=== PATIENT | male | born 1965 | race Caucasian/White ===

== ENCOUNTER 2018-06-07 11:07 | Emergency (ER) | payer SELFPAY ==
[~2018-06-07] VITALS: Ht 180.3 cm; Wt 81.8 kg
[2018-06-07 11:59] LABS: HEMATOCRIT 43.2 % (42.0-52.0); HEMOGLOBIN 15.7 g/dL (13.5-18.0); MEAN CELL VOLUME 94 fl (78-100); MEAN CORPUSCULAR HEMOGLOBIN 34 pg (27-31); MEAN CORPUSCULAR HGB CONC 36 g/dL (33-37); MEAN PLATELET VOLUME 11.5 fl (7.4-10.4); PLATELET COUNT 170 K/mm3 (130-400); RED BLOOD COUNT 4.58 M/mm3 (4.20-5.60); RED CELL DISTRIBUTION WIDTH 12.6 % (11.5-14.5); WHITE BLOOD COUNT 11.3 K/mm3 (4.8-10.8)
[2018-06-07 12:15] LABS: ALBUMIN 4.8 g/dL (3.5-5.0); ALT/SGPT 175 U/L (21-72); AST-SGOT 496 U/L (17-59); CALCIUM 10.2 mg/dL (8.4-10.2); CARBON DIOXIDE 24 mmol/L (22-30); GLUCOSE 176 mg/dL (75-110); POTASSIUM 3.9 mmol/L (3.6-5.0); SODIUM 132 mmol/L (137-145); TOTAL BILIRUBIN 5.8 mg/dL (0.2-1.3); TOTAL PROTEIN 7.8 g/dL (6.3-8.2)
[2018-06-07 12:32] LABS: ALCOHOL IN-HOUSE < 10 mg/dL
[2018-06-07 12:33] LABS: LIPASE 6634 U/L (23-300)
[2018-06-07 12:36] LABS: LYMPHOCYTE 10 % (20-51); MONOCYTE 4 % (3-10); NEUTROPHILS 86 % (42-75)
[2018-06-07 13:54] LABS: URINE APPEARANCE HAZY; URINE COLOR DK YELLOW-ORANGE; URINE GLUCOSE NEGATIVE (NEGATIVE); URINE KETONE 2+ (NEGATIVE); URINE PROTEIN(semi-quant) TRACE mg/dL (NEGATIVE)
[2018-06-07 13:55] LABS: URINE BILIRUBIN 2+ (NEGATIVE); URINE BLOOD 50 ery/uL (NEGATIVE); URINE LEUKOCYTE ESTERASE NEGATIVE (NEGATIVE); URINE NITRATE NEGATIVE (NEGATIVE); URINE UROBILINOGEN 1 mg/dL (NORMAL)
[2018-06-07 14:05] LABS: URINE WBC 0-1 /hpf (0-3)
[2018-06-07 14:06] LABS: URINE MUCUS PRESENT (NOT PRESENT)
[2018-06-07 15:56] VITALS: BP 152/106
== END 2018-06-07 15:24 | disposition short-term general hospital (02) ==
LOC: ED 11:07
PROVIDERS: Nurse Practitioner Primary Care
DX: K85.90 Acute pancreatitis without necrosis or infection, unspecified (principal); F10.230 Alcohol dependence with withdrawal, uncomplicated; K70.40 Alcoholic hepatic failure without coma
CPT/HCPCS: J2060; J2270; J2405; J2543; J2550; J3411; J3490; J7030; Q9967

== ENCOUNTER 2019-02-23 15:00 | Emergency (ER) | payer BC ==
[~2019-02-23] VITALS: Wt 90.9 kg
[2019-02-23] MEDS ORDERED: ESCITALOPRAM5 MG PO (15:29)
[2019-02-23 15:38] LABS: BASO # 0.1 (0.02-0.10); EOS # 0.2 (0.04-0.40); EOS % 2.5 % (0.0-4.0); HEMATOCRIT 42.6 % (42.0-52.0); HEMOGLOBIN 14.3 g/dL (13.5-18.0); MEAN CELL VOLUME 97 fl (78-100); MEAN CORPUSCULAR HEMOGLOBIN 32 pg (27-31); MEAN CORPUSCULAR HGB CONC 34 g/dL (33-37); MONO # 0.5 (0.20-0.80); NEU # 3.6 (1.40-6.50); PLATELET COUNT 332 K/mm3 (130-400); RED BLOOD COUNT 4.41 M/mm3 (4.20-5.60); RED CELL DISTRIBUTION WIDTH 13.5 % (11.5-14.5); WHITE BLOOD COUNT 7.3 K/mm3 (4.8-10.8)
[2019-02-23 16:18] LABS: PROTHROMBIN TIME 8.9 SECONDS (9.0-12.0)
[2019-02-23 19:50] LABS: URINE COLOR YELLOW
[2019-02-23 19:51] LABS: URINE APPEARANCE HAZY; URINE BILIRUBIN NEGATIVE (NEGATIVE); URINE BLOOD NEGATIVE (NEGATIVE); URINE GLUCOSE NEGATIVE (NEGATIVE); URINE KETONE NEGATIVE (NEGATIVE); URINE LEUKOCYTE ESTERASE NEGATIVE (NEGATIVE); URINE NITRATE NEGATIVE (NEGATIVE); URINE PROTEIN(semi-quant) 1+ mg/dL (NEGATIVE); URINE UROBILINOGEN NORMAL (NORMAL)
[2019-02-23 19:52] LABS: URINE MUCUS PRESENT (NOT PRESENT)
[2019-02-23 21:33] VITALS: BP 129/94
[2019-02-26 11:30] LABS: POTASSIUM 4.5 mmol/L (3.5-5.1)
[2019-02-26 11:31] LABS: ALBUMIN 3.4 g/dL (3.5-5.0); CALCIUM 8.3 mg/dL (8.3-10.5); TOTAL PROTEIN 6.9 g/dL (6.4-8.3)
== END 2019-02-23 21:33 | disposition home or self-care (01) ==
LOC: ED 15:00
PROVIDERS: Nurse Practitioner Primary Care
DX: F10.229 Alcohol dependence with intoxication, unspecified (principal)
CPT/HCPCS: J2405; J3411; J3490; J7030

== ENCOUNTER 2019-04-16 04:37 | Emergency (ER) | payer BC ==
[~2019-04-16 04:37] MED LIST: ESCITALOPRAM5 MG PO
[2019-04-16 06:19] LABS: HEMATOCRIT 38.4 % (42.0-52.0); HEMOGLOBIN 13.3 g/dL (13.5-18.0); MEAN CELL VOLUME 98 fl (78-100); MEAN CORPUSCULAR HEMOGLOBIN 34 pg (27-31); MEAN CORPUSCULAR HGB CONC 35 g/dL (33-37); MEAN PLATELET VOLUME 11.1 fl (7.4-10.4); PLATELET COUNT 210 K/mm3 (130-400); RED BLOOD COUNT 3.93 M/mm3 (4.20-5.60); RED CELL DISTRIBUTION WIDTH 12.7 % (11.5-14.5); WHITE BLOOD COUNT 13.8 K/mm3 (4.8-10.8)
[2019-04-16 06:31] LABS: POTASSIUM 4.2 mmol/L (3.5-5.1)
[2019-04-16 06:32] LABS: ALBUMIN 4.1 g/dL (3.5-5.0); LYMPHOCYTE 8 % (20-51); MONOCYTE 3 % (3-10); NEUTROPHILS 89 % (42-75)
[2019-04-16 06:33] LABS: CALCIUM 8.3 mg/dL (8.3-10.5)
[2019-04-16 06:35] LABS: TOTAL PROTEIN 7.3 g/dL (6.4-8.3)
[2019-04-16 06:36] LABS: TOTAL BILIRUBIN 1.2 mg/dL (0.2-1.2)
[2019-04-16] MEDS ORDERED: ULTRAM50 M1 PO (08:13)
[2019-04-16 08:48] VITALS: BP 144/86
== END 2019-04-16 08:46 | disposition home or self-care (01) ==
LOC: ED 04:37
PROVIDERS: Family Medicine
DX: S42.201A Unspecified fracture of upper end of right humerus, initial encounter for closed fracture (principal); R40.2410 Glasgow coma scale score 13-15, unspecified time; F10.20 Alcohol dependence, uncomplicated; Z87.19 Personal history of other diseases of the digestive system; W01.0XXA Fall on same level from slipping, tripping and stumbling without subsequent striking against object, initial encounter; Y92.512 Supermarket, store or market as the place of occurrence of the external cause
CPT/HCPCS: A4565; C9113; J1885; J2270; J7120